=== PATIENT | female | born 1970 | race African-American/Black ===

== ENCOUNTER 2017-11-08 14:22 | Observation (INO) | payer OTHER ==
[~2017-11-08] VITALS: Ht 152.4 cm; Wt 104.3 kg
[2017-11-08 15:12] LABS: BILIRUBIN,URINE NEGATIVE (NEGATIVE); CLARITY,URINE SL CLOUDY (CLEAR); COLOR,URINE YELLOW (YELLOW); KETONES,URINE TRACE (NEGATIVE); LEUKOCYTE ESTERASE ,URINE NEGATIVE (NEGATIVE); NITRITE,URINE NEGATIVE (NEGATIVE); PROTEIN,URINE DIPSTICK NEGATIVE (NEGATIVE); URINE UROBILINOGEN 0.2 mg/dL (0.2 - 1)
[2017-11-08 15:34] LABS: RBC,URINE 0-5 /HPF (0-5); WBC,URINE (MAN) 0-5 /HPF (0-5)
[2017-11-08 15:34] LABS: ANION GAP 14.5 mmol/L (8-16); BLOOD UREA NITROGEN 14 mg/dL (7-26); BUN/CREATININE RATIO 16 (6-25); CALCIUM 9.3 mg/dL (8.4-10.2); CARBON DIOXIDE 25 mmol/L (22-29); CHLORIDE 107 mmol/L (98-107); CREATININE, SERUM 0.85 mg/dL (0.57-1.11); EST GLOMERULAR FILTRATION RATE > 60 ML/MIN (60-); GLUCOSE 111 mg/dL (74-118); OSMOLALITY,SERUM 286 mOsm/kg (278-305); POTASSIUM 3.5 mmol/L (3.5-5.1); SODIUM 143 mmol/L (136-145)
[2017-11-08 15:35] LABS: BACTERIA,URINE RARE /HPF; EPITHELIAL CELLS,URINE FEW /LPF
[2017-11-08 15:37] LABS: MUCUS,URINE MANY (RARE)
[2017-11-08 17:05] LABS: CHOL/HDL RATIO 2.9 (3.0-3.6)
[2017-11-08 17:25] LABS: THYROID STIMULATING HORMONE 0.663 uIU/mL (0.350-4.940)
[2017-11-08 19:33] VITALS: BP 140/92
[2017-11-08] MEDS ORDERED: KETOROLAC TROMETHAMINE 10 MG TAB PO PRN (20:00)
[2017-11-08] MEDS ORDERED: CLONAZEPAM 0.5 MG TAB PO PRN (20:00)
[2017-11-08 21:00] VITALS: BP 148/98
[2017-11-09 08:00] VITALS: BP 119/81
[2017-11-09 08:26] LABS: BASOPHILS # (AUTO) 0.1 (0.0-0.1); EOSINOPHILS # (AUTO) 0.2 (0.0-0.4); EOSINOPHILS % 2.1 % (0.0-6.0); HEMATOCRIT 38.6 % (34.2-44.1); HEMOGLOBIN 12.3 g/dL (12.0-16.0); LYMPHOCYTES # (AUTO) 2.4 (1.0-3.2); LYMPHOCYTES % 32.4 % (18.0-39.1); MEAN CORPUSCULAR HEMOGLOBIN 27.3 pg (28-32); MEAN CORPUSCULAR HGB CONC 31.9 g/dL (31-35); MEAN CORPUSCULAR VOLUME 85.6 fL (81-99); MONOCYTES # (AUTO) 0.7 (0.2-0.8); MONOCYTES % 9.4 % (4.4-11.3); NEUTROPHILS % 54.7 % (38.7-80.0); PLATELET COUNT 282 x10e3/uL (140-360); RED BLOOD COUNT 4.51 x10e6/uL (3.6-5.1); RED CELL DISTRIBUTION WIDTH 14.1 % (11.7-14.4)
[2017-11-09] MEDS: LABETALOL HCL 200 MG TAB PO SCH ×2 (09:00→17:00)
[2017-11-09] MEDS ORDERED: NIFEDIPINE 10 MG CAP PO SCH (09:00)
[2017-11-09] MEDS: NIFEDIPINE CR 30 MG TAB PO SCH (09:00)
[2017-11-09 12:00] VITALS: BP 145/75
--- NOTE | 2017-11-09 13:08 | Consultation ---
DATE OF CONSULTATION: November 09, 2017 REASON FOR CONSULTATION: Polyuria. HPI: Ms. Pitts is a 47-year-old woman with a history of hypertension, who follows with Dr. Pena in clinic. She presented to [facility] yesterday with complaint of polyuria. She states that she works 12-hour shifts, and during the day she does not make any urine at all. Then after coming back to home and lying down, she urinates frequently. Over the past few days, she has been urinating twice every few hours constantly. She has also started to have occasional cramps in her legs in the setting of this. She denies increased thirst, dry mouth, changes in appetite or uncontrolled diabetes. Nobody in her family has diabetes insipidus, and she has never been told that she has diabetes insipidus. She has not recently had any surgery performed. She does not endorse decreased stream or difficulty urinating. REVIEW OF SYSTEMS: She denies fevers, chills, cough, nausea, vomiting, diarrhea, chest pain, palpitations, abdominal pain, pain or burning with urination, numbness or tingling in upper and lower extremities, changes in weight, changes in appetite, changes in thirst. PAST MEDICAL HISTORY: Hypertension. PAST SURGICAL HISTORY: None. FAMILY HISTORY: No history of diabetes insipidus. Mother of end-stage renal disease. SOCIAL HISTORY: No alcohol, tobacco or illicit drug use. PHYSICAL EXAMINATION GENERAL: She is lying comfortably in bed, in no acute distress. VITAL SIGNS: Temperature 97, heart rate 83, respiratory rate 18, blood pressure 99156. O2 sat is 97% on room air. HEENT: NC, AT, EOMI. NECK: Supple. JVP not appreciated. LUNGS: Clear to auscultation bilaterally. No wheezing or rales. HEART: Regular rate and rhythm. S1 and S2 normal. ABDOMEN: Soft, nontender, nondistended. Positive bowel sounds. EXTREMITIES: Intact pulses. No edema. SKIN: No rashes or lesions. NEURO: Cranial nerves II through XII are grossly intact. No focal deficits. MUSCULOSKELETAL: Normal inspection. Normal gait. LABS: Reviewed on electronic medical record. Significant for normal sodium of 143, potassium 3.5, creatinine 0.8, specific gravity 1.03 with pending urine osmolality. IMAGING: Reviewed on electronic medical record. ASSESSMENT AND PLAN 1. Suspected polyuria. I am not convinced that she has polyuria. It is reasonable she that urinates more during the night, especially after not urinating all day, due to increased venous return from venous contraction while lying down. I do not think she needs a Arita just yet. I requested she keep an accurate measurement of her urine output. For her to qualify as being polyuric, she would need to make more than 3 L a day. For now, since this morning, she has only made 300, and it is currently 11 a.m. I will repeat a UA as the prior one shows a high specific gravity, which would be against diabetes insipidus and, in general, having a normal sodium with a higher urine osmolality and serum osmolality would go against diabetes insipidus. Will repeat the UA. Check on the urine osmolality. She does not need medications for now to treat the polyuria. Will hold the ketorolac. 2. Hypertension. Continue nifedipine and labetalol. Thank you, Dr. Pena, for allowing me to participate in the care of Ms. Pitts. I will continue to follow closely. Job#: [id number]
--- NOTE | 2017-11-09 13:57 | History and Physical ---
PRIMARY CARE PHYSICIAN: Dr. Raj Pena CHIEF COMPLAINT: Excess urination. HISTORY OF PRESENT ILLNESS: This is a 47-year-old woman with a history of prediabetes, now developing excess urination for the past 2 to 3 weeks, urinating about 4 to 6 times at night large amounts of urine, sometimes waking up in the morning with need for multiple urination large volume. She denies any dysuria. Denies any fever, chills or sweats. Denies any head trauma. Denies any recent injury. Does not take lithium. PAST MEDICAL HISTORY: Prediabetes, right shoulder rotator cuff tear, awaiting surgery, urinary urgency, right shoulder pain, morbid obesity, generalized anxiety disorder, hypertension. PAST SURGICAL HISTORY: Hysterectomy, x2, cyst removal, breast reduction. ALLERGIES: PER ELECTRONIC MEDICAL RECORD. FAMILY HISTORY: Her mother had congestive heart failure, end-stage renal disease, and hypertension. Father is alive and healthy. SOCIAL HISTORY: The patient is single. She has 2 children. Occasional alcohol. No cigarettes or illicits. 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 MEDICATIONS: Per electronic medical record. REVIEW OF SYSTEMS: Denies any dizziness, chest pain, shortness of breath, fever, chills, sweats, nausea, vomiting, diarrhea, leg pain, headache, blurred vision. PHYSICAL EXAMINATION VITAL SIGNS: Have been reviewed. GENERAL APPEARANCE: No acute distress, resting in bed. HEENT: Anicteric. Pupils respond to light. No oral lesions. CARDIOVASCULAR: Normal S1 and S2. LUNGS: Moderate breath sounds. ABDOMEN: Soft, nontender, nondistended. EXTREMITIES: No edema or calf tenderness. NEUROLOGIC: Alert and oriented x3. Moving all extremities. SKIN: Dry. PSYCHIATRIC: Normal affect. LABS: Reviewed. MEDICATIONS: Reviewed. ASSESSMENT: A 47-year-old woman with 1. Polyuria. 2. Prediabetes. 3. Morbid obesity with body mass index 44.9. 4. Hypertension. 5. Anxiety disorder. 6. High-grade near full thickness of the right rotator cuff. PLAN 1. Hold clonazepam. 2. Obtain urinalysis. 3. Obtain 24-hour urine collection with volume measurement. 4. Obtain urine osmol, serum osmol. 5. Obtain blood antidiuretic hormone level. 6. Obtain hemoglobin A1c. 7. Patient's symptoms could be due to urinary retention caused by clonazepam and subsequent excess urine output when the drug wears off. Half-life of the drug is 20 to 50 hours. 8. Will use SCD. 9. Nephrology consultation. 10. Disposition. Follow up nephrology recommendation. Follow up lab results. Job#: [id number] LPA
[2017-11-09 16:00] VITALS: BP 126/74
[2017-11-09 20:44] VITALS: BP 112/85
[2017-11-09 21:00] VITALS: BP 112/85
[2017-11-10 00:43] VITALS: BP 98/70
[2017-11-10 04:30] VITALS: BP 102/70
[2017-11-10 06:31] LABS: BASOPHILS # (AUTO) 0.1 (0.0-0.1); EOSINOPHILS # (AUTO) 0.2 (0.0-0.4); EOSINOPHILS % 2.2 % (0.0-6.0); HEMOGLOBIN 11.5 g/dL (12.0-16.0); LYMPHOCYTES # (AUTO) 2.3 (1.0-3.2); LYMPHOCYTES % 33.7 % (18.0-39.1); MEAN CORPUSCULAR HEMOGLOBIN 27.2 pg (28-32); MEAN CORPUSCULAR HGB CONC 31.1 g/dL (31-35); MEAN CORPUSCULAR VOLUME 87.5 fL (81-99); MONOCYTES # (AUTO) 0.8 (0.2-0.8); MONOCYTES % 11.4 % (4.4-11.3); NEUTROPHILS # (AUTO) 3.5 (2.1-6.9); NEUTROPHILS % 51.3 % (38.7-80.0); PLATELET COUNT 268 x10e3/uL (140-360); RED BLOOD COUNT 4.23 x10e6/uL (3.6-5.1); RED CELL DISTRIBUTION WIDTH 14.1 % (11.7-14.4)
[2017-11-10 06:40] LABS: CLARITY,URINE CLEAR (CLEAR); COLOR,URINE YELLOW (YELLOW); LEUKOCYTE ESTERASE ,URINE NEGATIVE (NEGATIVE); NITRITE,URINE NEGATIVE (NEGATIVE); PROTEIN,URINE DIPSTICK NEGATIVE (NEGATIVE)
[2017-11-10 06:41] LABS: BILIRUBIN,URINE NEGATIVE (NEGATIVE); KETONES,URINE NEGATIVE (NEGATIVE); URINE UROBILINOGEN 0.2 mg/dL (0.2 - 1)
[2017-11-10 06:48] LABS: ANION GAP 12.1 mmol/L (8-16); BLOOD UREA NITROGEN 11 mg/dL (7-26); BUN/CREATININE RATIO 16 (6-25); CALCIUM 8.8 mg/dL (8.4-10.2); CARBON DIOXIDE 24 mmol/L (22-29); CHLORIDE 109 mmol/L (98-107); CREATININE, SERUM 0.67 mg/dL (0.57-1.11); EST GLOMERULAR FILTRATION RATE > 60 ML/MIN (60-); GLUCOSE 93 mg/dL (74-118); MAGNESIUM 2.4 MG/DL (1.3-2.1); POTASSIUM 4.1 mmol/L (3.5-5.1); SODIUM 141 mmol/L (136-145)
[2017-11-10 06:54] LABS: EPITHELIAL CELLS,URINE FEW /LPF
[2017-11-10 06:55] LABS: WBC,URINE (MAN) 0-5 /HPF (0-5)
[2017-11-10 07:02] LABS: PHOSPHORUS 3.3 MG/DL (2.3-4.7)
[2017-11-10 08:41] VITALS: BP 105/69
[2017-11-10] MEDS: NIFEDIPINE CR 30 MG TAB PO SCH (09:00)
[2017-11-10] MEDS: LABETALOL HCL 200 MG TAB PO SCH (09:11)
--- NOTE | 2017-11-10 09:26 | Progress Note ---
DATE: November 10, 2017 REASON FOR CONSULTATION: Urinary frequency. SUBJECTIVE: No acute events overnight. Made 1.7 L of urine. Each time only urinates about 100 mL, but goes quite frequently. OBJECTIVE GENERAL: Laying comfortably in bed. No acute distress. VITAL SIGNS: Temperature 96.7, heart rate 85, respiratory rate 18, blood pressure 105/69, and O2 sat is 100%. LUNGS: Clear to auscultation bilaterally. No wheezing or rales. HEART: Regular rate and rhythm. S1 and S2 normal. ABDOMEN: Soft, nontender and nondistended. EXTREMITIES: No edema. Intact pulses. SKIN: No rashes or lesions. LABS: Reviewed in the electronic medical record. Normal lab profile with slightly elevated magnesium of 2.4. ASSESSMENT AND PLAN: Urinary frequency. No signs of urinary tract infection. Suspect she has mild urge incontinence. We will start her on oxybutynin and have her see urology for this as an outpatient. Thank you, Dr. Pena, for allowing me to participate in the care of Ms. Pitts. From a renal standpoint, she is okay to be discharged today. Job#: [id number] [place]
[2017-11-10 10:27] VITALS: BP 110/69
[2017-11-10 12:48] VITALS: BP 100/74
[2017-11-10 13:34] LABS: OSMOLALITY,SERUM OSMOMETER 287 mOsmol/kg (275-295)
[2017-11-10] MEDS ORDERED: OXYBUTYNIN CHLOR5 MG PO (14:16)
--- NOTE | 2017-11-14 16:25 | Discharge Summary ---
PRINCIPAL DIAGNOSES 1. Polyuria. 2. Urinary urgency. 3. Prediabetes. 4. Morbid obesity with body mass index of 44.9. 5. Hypertension. 6. Anxiety disorder. SECONDARY DIAGNOSIS: High-grade near full thickness of the right rotator cuff. CHIEF COMPLAINT: Excessive urination. HISTORY OF PRESENT ILLNESS: This is a 47-year-old woman with excessive urination. Please refer to the H and P for further details. HOSPITAL COURSE: Patient has been having excessive urination but she has had reduced urine output during the day and increased at night. Symptoms seem to be related to urgency and needs to follow up with [facility]. A 24-hour urine collection was obtained which was normal. Nephrology assisted in management. ADH was ordered, antidiuretic hormone. Results are still pending. Patient is currently appropriate for discharge followup. DISCHARGE MEDICATIONS: Refer to electronic medical record. FOLLOWUP: Follow up with primary care doctor in 1 week and gynecology in 1 week. LAZARA JOY MD Job#: [id number] DG
== END 2017-11-10 15:15 | disposition home or self-care (01) ==
LOC: ER 14:22 → ERHOLD 15:41 → MED/SURG2 17:21
PROVIDERS: ADMIT Internal Medicine; ATTEND Internal Medicine
DX: R35.0 Frequency of micturition (principal); R73.03 Prediabetes; E66.01 Morbid (severe) obesity due to excess calories; Z68.41 Body mass index [BMI] 40.0-44.9, adult; I10 Essential (primary) hypertension; F41.9 Anxiety disorder, unspecified; M75.101 Unspecified rotator cuff tear or rupture of right shoulder, not specified as traumatic; R39.15 Urgency of urination
CPT/HCPCS: 36415; 80048; 80061; 81001; 82947; 83036; 83735; 83930; 83935; 84100; 84295; 84443; 84520; 84588; 85025; 99284; G0378

== ENCOUNTER 2018-03-05 21:13 | Observation (INO) | payer OTHER ==
[~2018-03-05] VITALS: Ht 152.4 cm; Wt 98.9 kg
[~2018-03-05 21:13] MED LIST: OXYBUTYNIN CHLOR5 MG PO
--- OUTSIDE RECORDS SUMMARY | 2018-03-05 21:16 | XMS REPORT | Clinical Summary ---
Author Author [facility] Address Unknown Phone Unavailable Care Team Providers Care Shotgun Shell Assembly Machine Adjuster Name Role Phone Raj Pena MD PCP Allergies No Known Allergies Current Medications Prescription Sig. Disp. Refills Start End Date Status Date clonAZEPAM (KlonoPIN) 0.5 08/25/19 Active MG tablet 18 cyclobenzaprine 08/24/19 Active (FLEXERIL) 5 mg tablet 18 gabapentin (NEURONTIN) 09/07/19 Active 100 mg capsule 18 labetalol (NORMODYNE) 100 07/26/19 Active MG tablet 18 Hospital, Clinic, or Ordered Dose Route Frequency Start End Date Status Other Facility Date Administered Medication keTOROlac (TORadol) 30 mg IM once 10/04/19 10/04/19 Ended injection 30 18 18 mgIndications: Right shoulder pain, unspecified chronicity methylPREDNISolone 40 mg IM once 10/04/19 10/04/19 Ended acetate (DEPO-MEDROL) 18 18 injection 40 mgIndications: Right shoulder pain, unspecified chronicity Active Problems Problem Noted Date Right shoulder pain 10/09/2017 Complete tear of right rotator cuff 10/09/2017 Encounters Date Type Specialty Care Team Description 10/11/2017 Hospital Radiology Fernandez Thornton Encounter MD Geovanny 10/11/2017 Procedure Pass Radiology 10/11/2017 Ancillary Radiology Fernandez Thornton Orders MD Geovanny 10/03/2017 Office Visit Ortho Sports Medicine Fernandez Thornton Right shoulder painJr. MD unspecified chronicity (Primary Dx); Complete tear of right rotator cuff after 03/04/2017 Family History Medical History Relation Name Comments Hypertension Mother Relation Name Status Comments Mother Social History Tobacco Use Types Packs/Day Years Used Date Never Smoker Smokeless Tobacco: Never Used Alcohol Use Drinks/Week oz/Week Comments Yes Social Sex Assigned at Date Recorded Not on file Last Filed Vital Signs Vital Sign Reading Time Taken Blood Pressure - - Pulse - - Temperature - - Respiratory Rate - - Oxygen Saturation - - Inhaled Oxygen - - Concentration Weight 95.3 kg (210 lb) 10/03/2017 3:15 PM CDT Height 152.4 cm (5') 10/03/2017 3:15 PM CDT Body Mass Index 41.01 10/03/2017 3:15 PM CDT Plan of Treatment Health Maintenance Due Date Last Done Comments CERVICAL CANCER SCREENING 1990 INFLUENZA VACCINE 12/13/2017 Procedures Procedure Name Priority Date/Time Associated Diagnosis Comments MN INJECT TRIGGER POINT, Routine 10/03/2017 Right shoulder pain, Results for this 1 OR 2 3:00 PM CDT unspecified chronicity procedure are in the results section. MRI UPPER EXTREMITY Routine 09/12/2017 Results for this EXTERNAL STUDY 3:03 PM CDT procedure are in the results section. after 03/04/2017 Results * INJECT TRIGGER POINT, 1 OR 2 (10/03/2017 3:00 PM) Narrative Performed At Fernandez Thornton Jr., MD 10/09/20177:14 PM 1 or 2 Trigger Point Injection Date/Time: 10/09/2017 7:12 PM Performed by: FERNANDEZ THORNTON JR. Authorized by: FERNANDEZ THORNTON JR. Consent: Consent obtained:Verbal Consent given by:Patient Alternatives discussed:No treatment Indications: Indications:Pain relief Location: Therapeutic Trigger Point Injection:Single/multiple trigger point(s): 1-2 muscle groups Location: shoulder Shoulder injected:R periscapular Right side: Right Periscapular Medications administered: 40 mg methylPREDNISolone acetate 40 mg/mL; 30 mg keTOROlac 60 mg/2 mL Pre-procedure details: Neurovascular status: intact Skin preparation:2% chlorhexidine Procedure details: Topical anesthetic:Benzocaine gel Needle gauge:22 G Post-procedure details: Patient tolerance of procedure:Tolerated well, no immediate complications * MRI Upper Extremity External Study (09/12/2017 3:03 PM) Narrative Performed At This exam was not acquired at a [facility] facility and has not been [facility] interpreted by a [facility] Provider.The exam was imported into our imaging system for comparisons purposes. Performing Organization Address City/State/Zipcode Phone Number [facility] [address] [place] [address] after 03/04/2017 Insurance Payer Benefit Subscriber ID Type Phone Address Plan / Group [facility] UMR xxxxxxxxx PPO [facility] [id number] [place] [id number]
[2018-03-05] MEDS ORDERED: ASPIRIN 81 MG CHEW TAB PO ONE (21:45)
[2018-03-05 21:51] LABS: BASOPHILS # (AUTO) 0.1 (0.0-0.1); BASOPHILS % 1.2 % (0.0-1.0); EOSINOPHILS # (AUTO) 0.2 (0.0-0.4); EOSINOPHILS % 2.4 % (0.0-6.0); HEMATOCRIT 42.2 % (34.2-44.1); HEMOGLOBIN 13.3 g/dL (12.0-16.0); LYMPHOCYTES # (AUTO) 3.1 (1.0-3.2); LYMPHOCYTES % 36.5 % (18.0-39.1); MEAN CORPUSCULAR HEMOGLOBIN 26.8 pg (28-32); MEAN CORPUSCULAR HGB CONC 31.5 g/dL (31-35); MEAN CORPUSCULAR VOLUME 84.9 fL (81-99); MONOCYTES # (AUTO) 0.9 (0.2-0.8); MONOCYTES % 10.2 % (4.4-11.3); NEUTROPHILS # (AUTO) 4.2 (2.1-6.9); NEUTROPHILS % 49.3 % (38.7-80.0); PLATELET COUNT 332 x10e3/uL (140-360); RED BLOOD COUNT 4.97 x10e6/uL (3.6-5.1); RED CELL DISTRIBUTION WIDTH 13.7 % (11.7-14.4)
[2018-03-05 22:02] LABS: INR 0.9
[2018-03-05 22:12] LABS: BILIRUBIN,URINE NEGATIVE (NEGATIVE); CLARITY,URINE CLEAR (CLEAR); COLOR,URINE YELLOW (YELLOW); KETONES,URINE NEGATIVE (NEGATIVE); LEUKOCYTE ESTERASE ,URINE NEGATIVE (NEGATIVE); NITRITE,URINE NEGATIVE (NEGATIVE); PROTEIN,URINE DIPSTICK NEGATIVE (NEGATIVE); URINE UROBILINOGEN 0.2 mg/dL (0.2 - 1)
[2018-03-05 22:13] LABS: ALANINE AMINOTRANSFERASE 17 IU/L (0-55); ALBUMIN 3.6 g/dL (3.5-5.0); ALBUMIN/GLOBULIN RATIO 0.9 (0.8-2.0); ALKALINE PHOSPHATASE 90 IU/L (40-150); ANION GAP 16.7 mmol/L (8-16); BLOOD UREA NITROGEN 14 mg/dL (7-26); BUN/CREATININE RATIO 17 (6-25); CALCIUM 9.5 mg/dL (8.4-10.2); CARBON DIOXIDE 22 mmol/L (22-29); CHLORIDE 107 mmol/L (98-107); CREATINE KINASE 238 IU/L (29-168); CREATININE, SERUM 0.82 mg/dL (0.57-1.11); EST GLOMERULAR FILTRATION RATE > 60 ML/MIN (60-); GLUCOSE 92 mg/dL (74-118); POTASSIUM 3.7 mmol/L (3.5-5.1); SODIUM 142 mmol/L (136-145)
[2018-03-05 22:18] LABS: BACTERIA,URINE RARE /HPF; EPITHELIAL CELLS,URINE RARE /LPF; RBC,URINE 0-5 /HPF (0-5); WBC,URINE (MAN) 0-5 /HPF (0-5)
--- NOTE | 2018-03-05 22:34 | Diagnostic Imaging Report ---
CHEST SINGLE (PORTABLE), 03/05/2018 9:37 PM Technique: CHEST SINGLE (PORTABLE) Comparison: None available. Clinical history: Chest pain Findings: Unremarkable portable appearance of the heart, mediastinum, lungs and pleural spaces. Impression: 1. Lines/Tubes: None 2. No acute abnormality. Signed by: Dr Katiuska Sharma MD on 03/05/2018 10:31 PM
[2018-03-06] VITALS (8 sets, daily range): BP systolic 121–166; BP diastolic 73–105
[2018-03-06] MEDS ORDERED: MORPHINE SULFATE 2 MG/ML SYR IV PRN (00:15)
[2018-03-06] MEDS ORDERED: METOPROLOL TARTRATE 25 MG TAB PO SCH ×2 (00:15→08:00)
[2018-03-06] MEDS ORDERED: SODIUM CHLORIDE FLUSH 10 ML SYR INJ PRN (00:15)
[2018-03-06] MEDS ORDERED: ASPIRIN 81 MG CHEW TAB PO ONE (00:15)
--- OUTSIDE RECORDS SUMMARY | 2018-03-06 00:24 | XMS REPORT ---
Author [facility] Address Unknown Phone Unavailable Care Team Providers Care Sausage Cooker Name Role Phone Silver PRIETO Unavailable Unavailable Problems This patient has no known problems. Allergies, Adverse Reactions, Alerts This patient has no known allergies or adverse reactions. Medications This patient has no known medications. Results Test Description Test Time Test Comments Text Results Atomic Results Result Comments CHEST SINGLE (PORTABLE) 2018-03-05 22:29:00 [facility] [address] [address] Patient Name: CLAYTON WATERMAN MR #: [id number] : 1970 Age/Sex: 47/F Req #: [id number] Adm Physician: Ordered by: SILVANA PRIETO MD Report #: [id number] Location: ER Room/Bed: Procedure: [id number] DX/CHEST SINGLE (PORTABLE) Exam Date: 03/05/18 Exam Time: 2210 REPORT STATUS: Signed CHEST SINGLE (PORTABLE), 03/05/2018 9:37 PM Techni que: CHEST SINGLE (PORTABLE) Comparison: None available. Clinical history: Chest pain Findings: Unremarkable portable appearance of the heart, mediastinum, lungs and pleural spaces. Impression: 1. Lines/Tubes: None 2. No acute abnormality. Signed by: Dr Magdalene Sharma MD on 03/05/2018 10:31 PM Dictated By: MAGDALENE SHARMA MD 30 Transcribed By: DAVID on 03/05/182230 COPY TO: SILVANA PRIETO MD
--- OUTSIDE RECORDS SUMMARY | 2018-03-06 00:24 | XMS REPORT | Clinical Summary ---
Author Author [facility] Address Unknown Phone Unavailable Care Team Providers Care Testing Machine Operator Name Role Phone Raj Pena MD PCP [...] Complete tear of right rotator cuff after 03/05/2017 Family History Medical History Relation Name Comments [...] Procedure Name Priority Date/Time Associated Diagnosis Comments GA INJECT TRIGGER POINT, Routine 10/03/2017 Right shoulder pain, Results for this 1 OR 2 3:00 PM CDT unspecified chronicity procedure are in the results section. MRI UPPER EXTREMITY Routine 09/12/2017 Results for this EXTERNAL STUDY 3:03 PM CDT procedure are in the results section. after 03/05/2017 Results * INJECT TRIGGER POINT, 1 OR [...] This exam was not acquired at a [facility] facility and has not been [facility] interpreted by a [facility] Provider.The exam was imported into our imaging system for comparisons purposes. Performing Organization Address City/State/Zipcode Phone Number [facility] [address] [place] [address] after 03/05/2017 Insurance Payer Benefit Subscriber ID Type Phone Address Plan / Group [facility] UMR xxxxxxxxx PPO [facility] [id number] [place] [id number]
--- NOTE | 2018-03-06 06:25 | Diagnostic Imaging Report ---
CHEST SINGLE (PORTABLE), 03/06/2018 12:06 AM Technique: CHEST SINGLE (PORTABLE) Comparison: Previous day. Clinical history: Chest pain Findings: Unremarkable portable appearance of the heart, mediastinum, lungs and pleural spaces. Impression: 1. Lines/Tubes: None 2. No acute abnormality. Signed by: Dr Katiuska Sharma MD on 03/06/2018 6:21 AM
[2018-03-06] MEDS ORDERED: SODIUM CHLORIDE 0.9% 50ML 50 ML ONE (07:05)
[2018-03-06] MEDS ORDERED: IOPAMIDOL 370 MG/ML 200 ML INFUS..BTL INJ ONE (07:06)
--- NOTE | 2018-03-06 07:12 | History and Physical ---
PRIMARY CARE PHYSICIAN: Dr. Raj Pena CHIEF COMPLAINT: Shortness of breath and chest discomfort. HISTORY OF PRESENT ILLNESS: This is a 47-year-old woman, who has had ongoing dyspnea on exertion for several months, which is now worsening. She states that she is short of breath with even walking to the bathroom. Shortness of breath is worse when lying down. She denies any coughing. She has chest tightness, but no particular chest pain. She has sensational chest palpitations, but upon checking her pulse, it is in the normal range. She came to the hospital for further evaluation and management due to ongoing symptoms. She has never had a stress test and electrocardiogram. PAST MEDICAL HISTORY: Polyuria, urinary urgency, prediabetes, morbid obesity, hypertension, anxiety disorder, high-grade near-full thickness tear of the right rotator cuff, generalized anxiety disorder. PAST SURGICAL HISTORY: Hysterectomy, x2, cyst removal, breast reduction. ALLERGIES: PER ELECTRONIC MEDICAL RECORDS. FAMILY HISTORY: Her mother had congestive heart failure, end-stage renal disease, and hypertension. Father is alive and healthy. SOCIAL: Patient is single. She has 2 children. Occasional alcohol. No cigarettes or illicits. 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 MEDICATIONS: Per electronic medical records. REVIEW OF SYSTEMS: Denies any dizziness, fever, chills, nausea vomiting, diarrhea, headache, back pain, leg pain, vision changes. PHYSICAL EXAMINATION VITAL SIGNS: Reviewed. GENERAL: A tired-appearing woman resting in bed. HEENT: Anicteric. CARDIOVASCULAR: Normal S1, S2. LUNGS: She has moderate breath sounds throughout. No wheezing. ABDOMEN: Soft, nontender, nondistended. EXTREMITIES: No edema. SKIN: Dry. PSYCHIATRIC: Normal affect. NEUROLOGICAL: Alert and oriented x3. Moves all extremities. LABS: Reviewed. MEDICATIONS: Reviewed. ASSESSMENT: This is a 47-year-old woman. 1. Atypical chest pain. 2. Dyspnea on exertion. 3. Prediabetes. 4. Hypertension. 5. Morbid obesity. Body mass index is 42.1. 6. Generalized anxiety disorder. 7. Polyuria. PLAN 1. Obtain 2-D echocardiogram. 2. Trend cardiac enzymes. 3. Will plan stress test inpatient versus outpatient. 4. Obtain lipid panel. 5. Hemoglobin A1c. 6. Continue beta-blockers and aspirin. 7. Prophylaxis, use Lovenox and Pepcid. 8. Disposition, calender runner recommendation. We will follow up 2-D echocardiogram and will obtain a CT scan of the chest with contrast to rule out chronic pulmonary embolism. Job#: [id number] CQ
--- NOTE | 2018-03-06 07:34 | Diagnostic Imaging Report ---
PROCEDURE: CT scan of the chest WITH intravenous contrast, using standard protocol. TECHNIQUE: The chest was scanned utilizing a multidetector helical scanner from the lung apex through the level of the adrenal glands after the IV administration of 100 cc of Isovue 370. Coronal and sagittal multiplanar reformations were obtained. COMPARISON: Chest radiograph 03/06/18. INDICATIONS: SOB; FATIGUE; PULMONARY DISEASE? FINDINGS: Lines/tubes: None. Lungs and Airways: The central airways are patent. No evidence of consolidation. Patchy dependent atelectasis in the lingula and middle lobe. Pleura: The pleural spaces are clear. Heart and mediastinum: The thyroid gland is normal. No significant mediastinal, hilar or axillary lymphadenopathy is seen. The heart and pericardium are within normal limits. Soft tissues: Normal. Abdomen: Limited contrast-enhanced views of the upper abdomen show no abnormality within the visualized liver, spleen, pancreas, or kidneys. The adrenal glands are normal. Bones: No acute bony findings. Mild degenerative disc changes of the thoracic spine. IMPRESSION: Unremarkable chest CT. Dictated by: LUCA SAUCEDO M.D. on 03/06/2018 at 7:42 Electronically approved by: LUCA SAUCEDO M.D. on 03/06/2018 at 7:42
[2018-03-06 08:17] LABS: CREATINE KINASE 195 IU/L (29-168)
[2018-03-06] MEDS: FAMOTIDINE 20 MG TAB PO SCH ×2 (08:43→16:15)
[2018-03-06] MEDS ORDERED: ASPIRIN 81 MG ENTERIC COATED PO SCH (09:00)
--- NOTE | 2018-03-06 14:33 | Consultation ---
DATE OF CONSULTATION: March 06, 2018 CARDIOLOGY CONSULTATION REQUESTING PHYSICIAN: Raj Pena MD REASON FOR CONSULTATION: Chest pain. HISTORY OF PRESENT ILLNESS: This is a 47-year-old woman with hypertension and obesity, who presents with complaints of chest pain and shortness of breath. The patient reports she has been having chest tightness and indigestion since Monday associated with shortness of breath. There is no radiation, nausea or diaphoresis. The pain is 4/10 in severity and lasts hours at a time. It occurs intermittently. She has not noted any aggravating or alleviating factors. Of note, she is more short of breath when she lies flat and is dyspneic on exertion with walking to and from the bathroom. She, otherwise, denies any PND or edema. REVIEW OF SYSTEMS: Negative, except as per HPI. PAST MEDICAL HISTORY 1. Hypertension. 2. Obesity. 3. Prediabetes. 4. Anxiety. PAST SURGICAL HISTORY 1. Hysterectomy. 2. section x2. 3. Breast reduction. 4. Ovarian cyst removal. ALLERGIES: NO KNOWN DRUG ALLERGIES. MEDICATIONS: Please see EMR. SOCIAL HISTORY: Denies tobacco or illicit drugs. She does drink alcohol socially. FAMILY HISTORY: Pertinent for mother with atrial fibrillation and grandmother with congestive heart failure. PHYSICAL EXAMINATION VITAL SIGNS: Temperature 96.9 degrees, pulse 81, respiratory rate 17, blood pressure 121/77, oxygen saturation 98% on room air. GENERAL: Obese woman in no acute distress. Awake and alert. HEENT: Normocephalic and atraumatic. Pupils are equal. No scleral icterus. NECK: Supple. No thyromegaly or cervical lymphadenopathy. No carotid bruit. LUNGS: Clear to auscultation bilaterally. No wheezes or crackles. CARDIOVASCULAR: Normal rate, regular rhythm. No murmur. Normal S1 and S2. ABDOMEN: Soft. Nontender. EXTREMITIES: No edema. NEURO: Nonfocal exam. LABS: WBC 8.43, hemoglobin 13.3, hematocrit 42.2, platelets 332. Sodium 142, potassium 3.7, chloride 107, CO2 22, BUN 14, creatinine 0.82. Troponin less than 0.001. BNP 16.4. Cholesterol 187, LDL 106, HDL 62, triglycerides 94. CT CHEST: Unremarkable chest CT. ECHOCARDIOGRAM: Mild concentric LVH. Overall left ventricular systolic function is normal with EF between 55% and 60%. Diastolic filling pattern indicates impaired relaxation. Trivial pericardial effusion is present. EKG: Normal sinus rhythm. Possible anterior infarct, age undetermined. IMPRESSION 1. Chest pain. 2. Dyspnea on exertion. 3. Hypertension. 4. Obesity. 5. Pre-diabetes mellitus. 6. Anxiety. RECOMMENDATIONS: No evidence of myocardial infarction on serial cardiac biomarkers. Echocardiogram demonstrated normal LV function with impaired relaxation. We will proceed with nuclear stress test today. Continue current cardiac medications otherwise. Further recommendations pending test results. Thank you for this consult. We will continue to follow. ANJU REEVES MD Job#: [id number]
[2018-03-06] MEDS ORDERED: REGADENOSON 0.4 MG/5 ML SYR IV ONE (15:38)
[2018-03-06 15:56] LABS: CREATINE KINASE MB 0.7 ng/mL (0-5.0)
[2018-03-06] MEDS ORDERED: ENOXAPARIN SOD INJ 40 MG/0.4 ML SYR SC SCH (17:00)
[2018-03-06] MEDS ORDERED: NIFEDIPINE ER30 M1 (17:43)
[2018-03-06] MEDS ORDERED: LABETALOL HCL100 MG PO (17:43)
[2018-03-06] MEDS ORDERED: NIFEDIPINE CR 30 MG TAB PO ONE (18:30)
--- NOTE | 2018-03-06 19:22 | Cardiology Report ---
DATE OF STUDY: March 06, 2018 PROCEDURE TITLE Rest stress single isotope SPECT imaging with pharmacologic stress and gated SPECT imaging. INDICATIONS: Chest pain. PROCEDURE: Pharmacologic stress testing was performed with regadenoson, per protocol. The heart rate was 74 beats per minute at rest and increased to 111 beats per minute during the regadenoson infusion. The rest blood pressure was 151/91 mmHg and decreased to 138/86 mmHg, which is a normal response. Patient did not develop any significant symptoms. The resting electrocardiogram demonstrated normal sinus rhythm. There were no ST segment changes consistent with myocardial ischemia. Myocardial perfusion imaging was performed at rest following injection of 11 mCi of tetrofosmin. At peak pharmacologic effect the patient was injected with 30 mCi of tetrofosmin. Gated post rest tomographic imaging was performed. FINDINGS: The overall quality of study is fair. Left ventricular cavity is noted to be normal size on the rest and stress studies. SPECT images demonstrate homogenous tracer distribution throughout the myocardium. Gated SPECT imaging reveals normal myocardial thickening and wall motion. Left ventricular ejection fraction was calculated to be greater than 70%. IMPRESSION: Myocardial perfusion imaging is normal. Overall left ventricular systolic function was normal without regional wall motion abnormalities. Job#: [id number] GH ELAINA
[2018-03-06] MEDS ORDERED: NIFEDIPINE CR 30 MG TAB PO SCH (19:30)
[2018-03-07] MEDS ORDERED: LABETALOL HCL 100 MG TAB PO SCH (09:00)
== END 2018-03-06 22:32 | disposition home or self-care (01) ==
LOC: ER 21:13 → ERHOLD 03-06 00:20 → IMCU 03-06 02:26
PROVIDERS: ADMIT Internal Medicine; ATTEND Internal Medicine
DX: R07.89 Other chest pain (principal); R06.00 Dyspnea, unspecified; R73.03 Prediabetes; E66.01 Morbid (severe) obesity due to excess calories; Z68.41 Body mass index [BMI] 40.0-44.9, adult; F41.1 Generalized anxiety disorder; R35.8 Other polyuria; Z82.49 Family history of ischemic heart disease and other diseases of the circulatory system; Z84.1 Family history of disorders of kidney and ureter; I10 Essential (primary) hypertension
CPT/HCPCS: 36415 ×2; 71045 ×2; 71260; 78452; 80053; 80061; 81001; 82550 ×2; 82553 ×2; 83036; 83880; 84484 ×2; 85025; 85379; 85610; 85730; 93005; 93017; 93306; 99284; A9502; G0378; Q9967

== ENCOUNTER 2018-08-12 09:02 | Inpatient (IN) | payer BC, OTHER ==
[~2018-08-12] VITALS: Ht 152.4 cm; Wt 105.3 kg
[~2018-08-12 09:02] MED LIST changes: +LABETALOL HCL100 MG PO; +NIFEDIPINE ER30 M1
--- OUTSIDE RECORDS SUMMARY | 2018-08-12 09:05 | XMS REPORT | Clinical Summary ---
Author Author [facility] Organization [facility] Address Unknown Phone Unavailable Care Team Providers Care Hub Bander Name Role Phone Raj Pena MD PCP Allergies No Known Allergies Medications End Date Status Medication Sig Dispensed Refills Start Date Active clonAZEPAM (KlonoPIN) 0.5 0 MG tablet 8 Active cyclobenzaprine 0 (FLEXERIL) 5 mg tablet 8 Active gabapentin (NEURONTIN) 0 100 mg capsule 8 Active labetalol (NORMODYNE) 100 0 MG tablet 8 Status Hospital, Clinic, or Ordered Dose Route Frequency Start End Date Other Facility Date Administered Medication Ended keTOROlac (TORadol) 30 mg IM once 10/04/19 injection 30 18 8 mgIndications: Right shoulder pain, unspecified chronicity Ended methylPREDNISolone 40 mg IM once 10/04/19 acetate (DEPO-MEDROL) 18 8 injection 40 mgIndications: Right shoulder pain, unspecified chronicity Active Problems Problem Noted Date Right shoulder pain 10/09/2017 Complete tear of right rotator cuff 10/09/2017 Encounters Care Team Description Date Type Specialty Fernandez Thornton Jr., MD 10/11/2017 Hospital Radiology Encounter Fernandez Thornton Jr., MD Right shoulder pain, unspecified chronicity (Primary Dx); Complete tear of right rotator cuff 10/03/2017 Office Visit Ortho Sports Medicine after 08/11/2017 Family History Medical History Relation Name Comments Hypertension Mother Relation Name Status Comments Mother Social History Date Tobacco Use Types Packs/Day Years Used Never Smoker Smokeless Tobacco: Never Used Alcohol Use Drinks/Week oz/Week Comments Yes Social Sex Assigned at Date Recorded Not on file Industry Job Start Date Occupation Not on file Not on file Not on file Travel End Travel History Travel Start No recent travel history available. Last Filed Vital Signs Time Taken Vital Sign Reading - Blood Pressure - - Pulse - - Temperature - - Respiratory Rate - - Oxygen Saturation - - Inhaled Oxygen - Concentration 10/03/2017 3:15 PM CDT Weight 95.3 kg (210 lb) 10/03/2017 3:15 PM CDT Height 152.4 cm (5') 10/03/2017 3:15 PM CDT Body Mass Index 41.01 Plan of Treatment Health Maintenance Due Date Last Done Comments CERVICAL CANCER SCREENING 1990 INFLUENZA VACCINE 12/13/2017 Procedures Comments Procedure Name Priority Date/Time Associated Diagnosis TN INJECT TRIGGER POINT, Routine 10/03/2017 Right shoulder pain, 1 OR 2 3:00 PM CDT unspecified chronicity MRI UPPER EXTREMITY Routine 09/12/2017 EXTERNAL STUDY 3:03 PM CDT after 08/11/2017 Results * INJECT TRIGGER POINT, 1 OR 2 (10/03/2017 3:00 PM CDT) Narrative Performed At Fernandez Thornton Jr., MD [...] MRI Upper Extremity External Study (09/12/2017 3:03 PM CDT) Narrative Performed At This exam was not acquired at a [facility] facility and has not been [facility] interpreted by a [facility] Provider.The exam was imported into our imaging system for comparisons purposes. Performing Organization Address City/State/Zipcode Phone Number [facility] [address] [place] [address] after 08/11/2017 Insurance Payer Benefit Subscriber ID Type Phone Address Plan / Group [facility] UMR xxxxxxxxx PPO [employer] CHO[employer] NTWK Advance Directives Patient has advance care planning documents on file. For more information, meaghan e contact: Ham Torre [address] [place] [address]
[2018-08-12] MEDS ORDERED: SODIUM CHLORIDE 0.9% 1000ML 1,000 ML IV STA (09:40)
--- NOTE | 2018-08-12 10:21 | Diagnostic Imaging Report ---
Examination: Single AP view of the chest. COMPARISON: None. INDICATION: Abdominal pain DISCUSSION: Lines/tubes: None. Lungs: The lungs are well inflated and clear. No pneumonia or pulmonary edema. Pleura: No pleural effusion or pneumothorax. Heart and mediastinum: The heart and the mediastinum are unremarkable. Bones and soft tissues: No acute bony abnormalities. IMPRESSION: 1. No acute cardiopulmonary abnormalities. Signed by: Dr. Jordan Livingston M.D. on 08/12/2018 10:17 AM
--- NOTE | 2018-08-12 10:28 | NUR ---
PER PT SHE DID NOT TAKE HER BP MEDS THIS MORNING
[2018-08-12] MEDS ORDERED: MORPHINE SULFATE INJ 4 MG/ML INJ 1ML IV ONE (10:30)
[2018-08-12] MEDS ORDERED: KETOROLAC TROMETHAMINE 30 MG/ML VIAL IV ONE (10:30)
[2018-08-12] MEDS ORDERED: PANTOPRAZOLE 40 MG 10ML VIAL IV ONE (10:30)
[2018-08-12 10:53] LABS: BASOPHILS % 0.3 % (0.0-1.0); EOSINOPHILS % 0.5 % (0.0-6.0); HEMATOCRIT 40.6 % (34.2-44.1); LYMPHOCYTES # (AUTO) 1.3 (1.0-3.2); LYMPHOCYTES % 22.3 % (18.0-39.1); MEAN CORPUSCULAR VOLUME 84.4 fL (81-99); MONOCYTES # (AUTO) 0.9 (0.2-0.8); MONOCYTES % 15.1 % (4.4-11.3); NEUTROPHILS # (AUTO) 3.6 (2.1-6.9); NEUTROPHILS % 61.3 % (38.7-80.0); PLATELET COUNT 295 x10e3/uL (140-360); RED BLOOD COUNT 4.81 x10e6/uL (3.6-5.1); RED CELL DISTRIBUTION WIDTH 13.8 % (11.7-14.4)
[2018-08-12] MEDS ORDERED: LABETALOL HCL 5 MG/ML 20ML VIAL IV ONE (11:00)
--- NOTE | 2018-08-12 11:06 | NUR ---
PT STATES PAIN HAS IMPROVED NOW 08/22 AND FEELS MORE DULL
[2018-08-12 11:10] LABS: ALANINE AMINOTRANSFERASE 21 IU/L (0-55); ALBUMIN 3.3 g/dL (3.5-5.0); ALBUMIN/GLOBULIN RATIO 0.8 (0.8-2.0); ALKALINE PHOSPHATASE 84 IU/L (40-150); AMYLASE 40 U/L (25-125); ANION GAP 11.6 mmol/L (8-16); BLOOD UREA NITROGEN 9 mg/dL (7-26); BUN/CREATININE RATIO 12 (6-25); CALCIUM 9.4 mg/dL (8.4-10.2); CARBON DIOXIDE 25 mmol/L (22-29); CHLORIDE 107 mmol/L (98-107); CREATINE KINASE 127 IU/L (29-168); CREATININE, SERUM 0.75 mg/dL (0.57-1.11); EST GLOMERULAR FILTRATION RATE > 60 ML/MIN (60-); GLUCOSE 100 mg/dL (74-118); LIPASE 11 U/L (8-78); MAGNESIUM 2.2 MG/DL (1.3-2.1); POTASSIUM 3.6 mmol/L (3.5-5.1); SODIUM 140 mmol/L (136-145)
[2018-08-12 11:19] LABS: CLARITY,URINE HAZY (CLEAR); COLOR,URINE YELLOW (YELLOW); KETONES,URINE NEGATIVE (NEGATIVE); LEUKOCYTE ESTERASE ,URINE NEGATIVE (NEGATIVE); NITRITE,URINE NEGATIVE (NEGATIVE); PROTEIN,URINE DIPSTICK TRACE (NEGATIVE)
[2018-08-12 11:20] LABS: BILIRUBIN,URINE NEGATIVE (NEGATIVE); URINE UROBILINOGEN 1 mg/dL (0.2 - 1)
[2018-08-12 11:21] LABS: INR 1.04; PROTHROMBIN TIME 14.1 seconds (11.9-14.5)
[2018-08-12 11:22] LABS: PARTIAL THROMBOPLASTIN TIME 27.5 seconds (23.8-35.5)
[2018-08-12 11:28] LABS: RBC,URINE 0-5 /HPF (0-5); WBC,URINE (MAN) 0-5 /HPF (0-5)
[2018-08-12 11:29] LABS: BACTERIA,URINE FEW /HPF; EPITHELIAL CELLS,URINE MODERATE /LPF
--- NOTE | 2018-08-12 11:37 | NUR ---
PT STATES HER PAIN WENT FROM 4/10 TO 0
--- NOTE | 2018-08-12 12:21 | Diagnostic Imaging Report ---
EXAMINATION: CT of the abdomen and pelvis with contrast. TECHNIQUE: Helical CT images of the abdomen and pelvis were performed from the lung bases to the lesser trochanters after the intravenous administration of 150 cc of Isovue 300 and the oral administration of none. Coronal and sagittal reformatted images were obtained. COMPARISON: None. CLINICAL HISTORY:Abdominal pain DISCUSSION: ABDOMEN/PELVIS: LOWER THORAX:Unremarkable. HEPATOBILIARY: No focal hepatic lesions. No intra-or extrahepatic biliary ductal dilation. The gallbladder is normal. SPLEEN: No splenomegaly. PANCREAS: No focal masses or ductal dilatation. ADRENALS: No adrenal nodules. KIDNEYS/URETERS: No hydronephrosis, stones, or solid mass lesions. PELVIC ORGANS/BLADDER: The bladder is normal. PERITONEUM/RETROPERITONEUM: Periumbilical hernia with transverse defect 2.6 cm containing a loop of small bowel. No inflammatory change. LYMPH NODES: No intra-abdominal, retroperitoneal, pelvic or inguinal lymphadenopathy. VESSELS: The celiac trunk,superior and inferior mesenteric and bilateral renal arteries are patent The portal, superior mesenteric and splenic veins are patent. GI TRACT: No distention or wall thickening. BONES AND SOFT TISSUE: No bony destructive lesions. No soft tissue abnormalities. IMPRESSION: Periumbilical hernia with transverse defect to 2.6 cm containing a loop of small bowel. No inflammatory change. Signed by: Dr. Jordan Livingston M.D. on 08/12/2018 12:17 PM
--- NOTE | 2018-08-12 13:20 | NUR ---
PT STATES PAIN IS COMING BACK 3/10 STATES PAIN IS DULL
--- OUTSIDE RECORDS SUMMARY | 2018-08-12 13:54 | XMS REPORT | Clinical Summary ---
Author Author [facility] Organization [facility] Address Unknown Phone Unavailable Care Team Providers Care Fireboat Operator Name Role Phone Raj Pena MD [...] Comments Procedure Name Priority Date/Time Associated Diagnosis CT INJECT TRIGGER POINT, Routine 10/03/2017 Right shoulder [...] This exam was not acquired at a [facility] facility and has not been [facility] interpreted by a [facility] Provider.The exam was imported into our imaging system for comparisons purposes. Performing Organization Address City/State/Zipcode Phone Number [facility] [address] [place] [address] after 08/11/2017 Insurance Payer Benefit Subscriber ID Type Phone Address Plan / Group [facility] UMR xxxxxxxxx PPO [employer] CHO[employer] NTWK Advance Directives Patient has advance care planning documents on file. For more information, meaghan e contact: Ham Torre [address] [place] [address]
[2018-08-12] MEDS: MORPHINE SULFATE INJ 4 MG/ML INJ 1ML IV PRN (14:01)
[2018-08-12] MEDS: SODIUM CHLORIDE 0.9% 1000ML 1,000 ML IV SCH ×2 (14:01→22:15)
[2018-08-12] MEDS: ONDANSETRON HCL INJ 2MG/ML 2ML 2 MG/ML VIAL IV PRN ×2 (14:02→20:25)
--- NOTE | 2018-08-12 14:48 | NUR ---
pt states her pain is down to 0 from 3/10 after morphine admin
--- NOTE | 2018-08-12 16:08 | NUR ---
PT STATES SHE HAS QUESTIONS ABOUT THE PROCEDURE AND NEEDS TO SPEAK TO THE MD
--- NOTE | 2018-08-12 16:40 | NUR ---
DR OLIVER CALLED BACK AND SAID HE WOULD COME BY TOMORROW TO ANSWER ANY QUESTIONS THE PT MIGHT HAVE; PT INFORMED OF THIS
[2018-08-12] MEDS: PANTOPRAZOLE 40 MG 10ML VIAL IV SCH (16:46)
--- NOTE | 2018-08-12 17:52 | NUR ---
PRIMARY CARE PHYSICIAN: Dr. Raj Pena CHIEF COMPLAINT: abdominal pain. HISTORY OF PRESENT ILLNESS: This is a 48-year-old woman, p/w abdominal pain, found to have hernia; PAST MEDICAL HISTORY: Polyuria, urinary urgency, prediabetes, morbid obesity, hypertension, anxiety disorder, high-grade near-full thickness tear of the right rotator cuff, generalized anxiety disorder, Atypical chest pain PAST SURGICAL HISTORY: Hysterectomy, x2, cyst removal, breast reduction. ALLERGIES: PER ELECTRONIC MEDICAL RECORDS. FAMILY HISTORY: Her mother had congestive heart failure, end-stage renal disease, and hypertension. Father is alive and healthy. SOCIAL: Patient is single. She has 2 children. Occasional alcohol. No cigarettes or illicits. Works as a nurse at [employer]. MEDICATIONS: Per electronic medical records. REVIEW OF SYSTEMS: Denies any dizziness, fever, chills, nausea vomiting, diarrhea, headache, back pain, leg pain, vision changes. PHYSICAL EXAMINATION VITAL SIGNS: Reviewed. GENERAL: A tired-appearing woman resting in bed. HEENT: Anicteric. CARDIOVASCULAR: Normal S1, S2. LUNGS: She has moderate breath sounds throughout. No wheezing. ABDOMEN: Soft, Tender epigastrium; EXTREMITIES: No edema. SKIN: Dry. PSYCHIATRIC: Normal affect. NEUROLOGICAL: Alert and oriented x3. Moves all extremities. LABS: Reviewed. MEDICATIONS: Reviewed. ASSESSMENT: This is a 47-year-old woman. 1. Abdominal pain 2.Periumbilical hernia 3.Obesity 4.PreDM 5.Urinary incontinence 6.HTN 7.EMILIO PLAN 1. HIDA 2.hba1c/lipids 3.Restart home meds SCD/PEPCID dispo: f/u HIDA; possible surgical mgmt. Raj Pena MD, PhD.
[2018-08-12] MEDS ORDERED: IOPAMIDOL 370 MG/ML 200 ML INFUS..BTL INJ ONE (18:16)
[2018-08-12] MEDS ORDERED: SODIUM CHLORIDE 0.9% 50ML 50 ML ONE (18:16)
[2018-08-12 18:55] LABS: CREATINE KINASE 97 IU/L (29-168)
[2018-08-12 19:14] LABS: THYROID STIMULATING HORMONE 0.314 uIU/mL (0.350-4.940)
--- NOTE | 2018-08-12 19:18 | NUR ---
RECEIVED BEDSIDE REPORT FROM CAT ALANIS DAY SHIFT NURSE.
--- NOTE | 2018-08-12 20:38 | Consultation ---
DATE OF CONSULTATION: 08/12/2018 CHIEF COMPLAINT: Abdominal pain. HISTORY OF PRESENT ILLNESS: The patient is a 48-year-old female with 4-day history of epigastric abdominal pain and one episode of vomiting. She has been having nausea and decreased appetite. No fevers. No diarrhea. PAST MEDICAL HISTORY: Significant for hypertension. PAST SURGICAL HISTORY: Positive for removal of right ovarian cyst. ALLERGIES: SHE HAS NO DRUG ALLERGIES. SOCIAL HABITS: She does not smoke or drink alcohol. REVIEW OF SYSTEMS: No chest pain or shortness of breath. PHYSICAL EXAMINATION: VITAL SIGNS: Stable, afebrile. GENERAL: The patient is awake, alert, in mild discomfort. HEENT: Sclera anicteric. NECK: Supple. LUNGS: Clear. HEART: Regular rate and rhythm. ABDOMEN: Soft. There is a lump in the infraumbilical region in the midline, which is nontender. The lump is reducible. EXTREMITIES: Without cyanosis or edema. LABORATORY DATA: White cell count is 5.9 and hemoglobin of 13. Creatinine 0.7. Lipase 11. CT scan of the abdomen show periumbilical hernia with a loop of small bowel, nonobstructive. ASSESSMENT: Incarcerated nonobstructive incisional hernia, reducible. PLAN: Repair of incarcerated incisional hernia under anesthesia. Attendant risks discussed. Brandt Mcgraw MD DNL/MODL /[id number]
[2018-08-12] MEDS ORDERED: LABETALOL HCL 100 MG TAB PO SCH (21:00)
--- NOTE | 2018-08-12 22:08 | NUR ---
DR. JOY AT BEDSIDE WITH PT.
[2018-08-13 03:03] LABS: CREATINE KINASE MB 0.3 ng/mL (0-5.0)
[2018-08-13 05:36] LABS: BASOPHILS % 0.7 % (0.0-1.0); EOSINOPHILS # (AUTO) 0.1 (0.0-0.4); EOSINOPHILS % 1.8 % (0.0-6.0); HEMATOCRIT 38.5 % (34.2-44.1); LYMPHOCYTES # (AUTO) 2.4 (1.0-3.2); LYMPHOCYTES % 41.2 % (18.0-39.1); MEAN CORPUSCULAR HGB CONC 31.2 g/dL (31-35); MEAN CORPUSCULAR VOLUME 86.7 fL (81-99); MONOCYTES # (AUTO) 0.8 (0.2-0.8); MONOCYTES % 13.5 % (4.4-11.3); NEUTROPHILS # (AUTO) 2.4 (2.1-6.9); NEUTROPHILS % 42.6 % (38.7-80.0); PLATELET COUNT 277 x10e3/uL (140-360); RED BLOOD COUNT 4.44 x10e6/uL (3.6-5.1); RED CELL DISTRIBUTION WIDTH 13.8 % (11.7-14.4)
[2018-08-13 05:55] LABS: ALANINE AMINOTRANSFERASE 18 IU/L (0-55); ALBUMIN 3.1 g/dL (3.5-5.0); ALBUMIN/GLOBULIN RATIO 0.8 (0.8-2.0); ALKALINE PHOSPHATASE 71 IU/L (40-150); ANION GAP 12.5 mmol/L (8-16); BLOOD UREA NITROGEN 5 mg/dL (7-26); BUN/CREATININE RATIO 7 (6-25); CALCIUM 8.8 mg/dL (8.4-10.2); CARBON DIOXIDE 24 mmol/L (22-29); CHLORIDE 108 mmol/L (98-107); CREATININE, SERUM 0.73 mg/dL (0.57-1.11); EST GLOMERULAR FILTRATION RATE > 60 ML/MIN (60-); GLUCOSE 83 mg/dL (74-118); POTASSIUM 3.5 mmol/L (3.5-5.1); SODIUM 141 mmol/L (136-145)
--- NOTE | 2018-08-13 07:03 | NUR ---
REPORT GIVEN TO CAT ALANIS DAY SHIFT NURSE.
[2018-08-13] MEDS: SODIUM CHLORIDE 0.9% 1000ML 1,000 ML IV SCH ×3 (07:52→22:00)
--- NOTE | 2018-08-13 08:02 | NUR ---
PER DR CHRISTIE IT IS OK FOR PT TO TAKE MORNING PO MEDS WITH SIPS OF WATER
[2018-08-13] MEDS: LABETALOL HCL 100 MG TAB PO SCH (08:10)
[2018-08-13] MEDS: FAMOTIDINE 20 MG TAB PO SCH ×2 (08:10→17:43)
[2018-08-13] MEDS: NIFEDIPINE CR 30 MG TAB PO SCH (08:12)
[2018-08-13] MEDS: OXYBUTYNIN CHLORIDE 5 MG TAB PO SCH (08:13)
[2018-08-13] MEDS: ONDANSETRON HCL INJ 2MG/ML 2ML 2 MG/ML VIAL IV PRN ×2 (08:19→21:00)
[2018-08-13] MEDS: PANTOPRAZOLE 40 MG 10ML VIAL IV SCH ×2 (08:19→17:43)
[2018-08-13] MEDS: MORPHINE SULFATE INJ 4 MG/ML INJ 1ML IV PRN ×3 (08:19→21:09)
--- NOTE | 2018-08-13 09:28 | NUR ---
IM- Progress Note O/N; no events REVIEW OF SYSTEMS: Denies any dizziness, fever, chills, nausea vomiting, diarrhea, headache, back pain, leg pain, vision changes. PHYSICAL EXAMINATION VITAL SIGNS: Reviewed. GENERAL: A tired-appearing woman resting in bed. HEENT: Anicteric. CARDIOVASCULAR: Normal S1, S2. LUNGS: She has moderate breath sounds throughout. No wheezing. ABDOMEN: LAP site; tender abdomen; EXTREMITIES: No edema. SKIN: Dry. PSYCHIATRIC: Normal affect. NEUROLOGICAL: Alert and oriented x3. Moves all extremities. LABS: Reviewed. MEDICATIONS: Reviewed. ASSESSMENT: This is a 47-year-old woman. 1. Abdominal pain 2.Periumbilical hernia 3.Obesity 4.PreDM 5.Urinary incontinence 6.HTN 7.EMILIO PLAN 1. HIDA 2.hba1c/lipids 3.Restart home meds SCD/PEPCID dispo: f/u HIDA; possible surgical mgmt. 08/13 Hba1c 5.3, GNR UTI- start ceftriaxone. s/p hernia repair. pt able to ambulate to bathroom. Raj Pena MD, PhD.
[2018-08-13] MEDS: CEFTRIAXONE SOD 1 GM/NS 50 ML 50 ML IV SCH (09:59)
[2018-08-13] MEDS ORDERED: BACITRACIN 50,000 UNIT VIAL ONE (10:24)
[2018-08-13] MEDS ORDERED: BUPIVACAINE 0.5%/EPI 30 ML SDV INJ ONE (10:24)
--- NOTE | 2018-08-13 13:01 | NUR ---
RECEIVED REPORT FROM BE IN PACU AWAITING FOR PT TO ARRIVE TO FLOOR
--- NOTE | 2018-08-13 13:17 | Operative Report ---
DATE OF PROCEDURE: 08/13/2018 SURGEON: Brandt Mcgraw MD PREOPERATIVE DIAGNOSIS: Incarcerated incisional hernia. POSTOPERATIVE DIAGNOSIS: Incarcerated incisional hernia. OPERATIVE PROCEDURE: Repair of incarcerated incisional hernia. ANESTHESIA: General. DESCRIPTION OF PROCEDURE: The patient was brought to the OR and intubated. The abdomen was prepped and draped in a sterile fashion. A lower midline incision was reopened just around the umbilicus and below it, extending down to the underlying fascia. The hernia sac was dissected off the fascial edge. The patient had incarcerated loops of bowel inside the hernia sac, which were viable. After isolating the hernia sac and freeing it from the fascial edge, we were able to reduce it and the fascial preperitoneal space is clear for 2 to 3 cm. We then closed it in a transverse direction with interrupted 0-Prolene suture, taking wide bites from the fascial edges. After fascial repair, the subcutaneous tissues were approximated with 3-0 Vicryl and skin closed with subcuticular stitch. The patient was extubated and transferred to recovery room. ESTIMATED BLOOD LOSS: 5 mL. Brandt Mcgraw MD DNL/MODL /[id number]
[2018-08-13 13:20] VITALS: BP 160/100
[2018-08-13] MEDS ORDERED: LABETALOL HCL 5 MG/ML 20ML VIAL IV PRN (14:00)
[2018-08-13 14:14] VITALS: BP 160/100
--- NOTE | 2018-08-13 14:14 | NUR ---
PRN TRANDATE GIVEN FOR BP OF 158/83 HR OF 67 PER MD JOY ORDERS ORDERS TO CANCEL HIDA SCAN GIVEN
[2018-08-13 14:20] VITALS: BP 158/83
--- NOTE | 2018-08-13 16:12 | NUR ---
CASE MANAGEMENT INITIAL ASSESSMENT Closing Supervisor to bedside to discuss plan of care with patient/family. CM/SW role and care transitions discussed. Anticipated discharge plan discussed along with duration of care. CM/SW discussed patients right to make decisions in care. CM/SW work hours given. Patient lives: BOYFRIEND Admit/Transfer: ER Hospital/ER visits since last admit:0 POA/Emergency contact: JASON SHI, Current/Previous Home Health: NONE PCP/Follow-up Care: DR LAZARA JOY Current/Previous DME: NONE Medications (referring to index hospitalization or the first time you were in the hospital) a. Were changes made in your medications when you were in the hospital on [date of index hospitalization]? Yes No Not sure Explain: Note: If no or not sure, please skip to question d b. Did you understand the changes? Yes No Explain: c. Were you able to obtain your new medications right away? Yes No n/a SNF only Explain: d. Were you able to take your medications like the doctor wanted you to? Yes No Explain: e. Did the hospital give you an accurate, easy to understand list of medications when you left? Yes No n/a SNF only Explain: Scale of 1-10 how comfortable does patient feel with disease management in outpatient settin Other Services: NONE Employment Status: WORKS [employer] Areas of Concerns: NONE Referral Needs: NONE Education Needs: F/U WITH SURGEON THADDEUS/KAMERON given and signed (if applicable): N/A Goal for discharge:HOME WITH BOYFRIEND CM/SW left business card at the bedside with contact information. Name and number was also written on the patients whiteboard. Patient verbalized understanding of discussion. CM will follow-up with ongoing discharge and transition of care needs.
[2018-08-13 16:31] VITALS: BP 171/96
[2018-08-13] MEDS ORDERED: NEOSTIGMINE 5 MG/5ML SYR ONE (17:28)
[2018-08-13] MEDS ORDERED: ACETAMINOPHEN 1000 MG/100 ML IV ONE (17:28)
[2018-08-13] MEDS ORDERED: LABETALOL HCL 5 MG/ML 20ML VIAL ONE (17:28)
[2018-08-13] MEDS ORDERED: ONDANSETRON HCL INJ 2MG/ML 2ML 2 MG/ML VIAL ONE (17:28)
[2018-08-13] MEDS ORDERED: PROPOFOL IV EMULSION 10 MG/ML 20 ML VIAL ONE (17:28)
[2018-08-13] MEDS ORDERED: SEVOFLURANE INHAL SOLN 250 ML PEN BTL ONE (17:28)
[2018-08-13] MEDS ORDERED: SUCCINYLCHOLINE 200 MG/10 ML SYR ONE (17:28)
[2018-08-13] MEDS ORDERED: GLYCOPYRROLATE INJ 1MG/ 5 ML SYR ONE (17:28)
[2018-08-13] MEDS ORDERED: ROCURONIUM BROMIDE 10 MG/ML 5ML VIAL ONE (17:28)
[2018-08-13] MEDS ORDERED: CEFAZOLIN SOD 1 GM VIAL ONE (17:28)
[2018-08-13] MEDS ORDERED: DEXAMETHASONE SOD PHOS INJ 4 MG/ML VIAL ONE (17:28)
[2018-08-13] MEDS ORDERED: LIDOCAINE HCL 2% LOCAL INJ 5 ML SDV VIAL INJ ONE (17:28)
[2018-08-13 19:00] VITALS: BP 171/96
[2018-08-13] MEDS ORDERED: FENTANYL CITRATE/PF 100MCG/2 ML INJ ONE (19:13)
[2018-08-13] MEDS ORDERED: MIDAZOLAM HCL 2 MG/2 ML VIAL ONE (19:13)
[2018-08-13 20:04] VITALS: BP 153/87
[2018-08-14] VITALS (9 sets, daily range): BP systolic 119–161; BP diastolic 70–96
[2018-08-14] MEDS: SODIUM CHLORIDE 0.9% 1000ML 1,000 ML IV SCH ×3 (06:00→22:00)
[2018-08-14] MEDS: MORPHINE SULFATE INJ 4 MG/ML INJ 1ML IV PRN (07:03)
[2018-08-14] MEDS: ONDANSETRON HCL INJ 2MG/ML 2ML 2 MG/ML VIAL IV PRN ×2 (07:03→14:50)
--- NOTE | 2018-08-14 07:04 | NUR ---
Discharge summary; ASSESSMENT: This is a 47-year-old woman. 1. Abdominal pain 2.Periumbilical hernia 3.Obesity 4.PreDM 5.Urinary incontinence 6.HTN 7.EMILIO PLAN 1. HIDA 2.hba1c/lipids 3.Restart home meds SCD/PEPCID dispo: f/u HIDA; possible surgical mgmt. 08/13 Hba1c 5.3, GNR UTI- start ceftriaxone. s/p hernia repair. pt able to ambulate to bathroom. 08/14 E.coli UTI sen to ceftriaxone; d/c home on keflex and pain meds. check labs first. d/c home f/u pcp 1 week and as directed stable d/c>35mins. Raj Pena MD, PhD.
[2018-08-14] MEDS ORDERED: SENNA LAX8.6 MG PO (07:07)
[2018-08-14] MEDS ORDERED: KEFLEX500 MG PO (07:07)
[2018-08-14] MEDS ORDERED: ZOFRAN4 MG PO (07:07)
[2018-08-14] MEDS ORDERED: NIFEDIPINE ER30 M1 PO (07:07)
[2018-08-14] MEDS ORDERED: PANTOPRAZOLE SO40 MG PO (07:07)
[2018-08-14] MEDS ORDERED: TYLENOL WITH C1 EACH PO (07:10)
[2018-08-14] MEDS ORDERED: COLACE100 MG PO (07:11)
[2018-08-14 07:38] LABS: BASOPHILS % 0.3 % (0.0-1.0); EOSINOPHILS % 0.1 % (0.0-6.0); HEMATOCRIT 38.7 % (34.2-44.1); HEMOGLOBIN 12.2 g/dL (12.0-16.0); LYMPHOCYTES # (AUTO) 1.7 (1.0-3.2); LYMPHOCYTES % 15.7 % (18.0-39.1); MEAN CORPUSCULAR HEMOGLOBIN 26.6 pg (28-32); MEAN CORPUSCULAR HGB CONC 31.5 g/dL (31-35); MEAN CORPUSCULAR VOLUME 84.3 fL (81-99); MONOCYTES # (AUTO) 1.2 (0.2-0.8); MONOCYTES % 11.1 % (4.4-11.3); NEUTROPHILS # (AUTO) 7.8 (2.1-6.9); NEUTROPHILS % 72.4 % (38.7-80.0); PLATELET COUNT 292 x10e3/uL (140-360); RED BLOOD COUNT 4.59 x10e6/uL (3.6-5.1); RED CELL DISTRIBUTION WIDTH 13.6 % (11.7-14.4)
[2018-08-14 07:55] LABS: ANION GAP 9.4 mmol/L (8-16); BLOOD UREA NITROGEN 10 mg/dL (7-26); BUN/CREATININE RATIO 13 (6-25); CALCIUM 8.9 mg/dL (8.4-10.2); CARBON DIOXIDE 25 mmol/L (22-29); CHLORIDE 104 mmol/L (98-107); CREATININE, SERUM 0.76 mg/dL (0.57-1.11); EST GLOMERULAR FILTRATION RATE > 60 ML/MIN (60-); GLUCOSE 97 mg/dL (74-118); MAGNESIUM 2.3 MG/DL (1.3-2.1); POTASSIUM 3.4 mmol/L (3.5-5.1); SODIUM 135 mmol/L (136-145)
[2018-08-14] MEDS: LABETALOL HCL 100 MG TAB PO SCH (08:15)
[2018-08-14] MEDS: CEFTRIAXONE SOD 1 GM/NS 50 ML 50 ML IV SCH (08:15)
[2018-08-14] MEDS: OXYBUTYNIN CHLORIDE 5 MG TAB PO SCH (08:15)
[2018-08-14] MEDS: PANTOPRAZOLE 40 MG 10ML VIAL IV SCH ×2 (08:15→16:57)
[2018-08-14] MEDS: NIFEDIPINE CR 30 MG TAB PO SCH (08:31)
--- NOTE | 2018-08-14 08:33 | NUR ---
MD BENITA BURKETT WHO STATES PT IS REQUESTING EGD DUE TO ABD PAIN UNRELIEVED BY SX. MD ASKED TO SPEAK TO MD CORRALES FOR ORDERS ON [facility] INPATIENT SPOKE WITH MD CORRALES WHO HAS AGREED FOR EDG THIS AFTERNOON IF MELODY IS OK WITH PROCEDURE BEING DONE MD OLIVER HAS SAID OK . PT HAS SIGNED CONSENT FOR EDG FOR LATER THIS AFTERNOON PT HAS NOT HAD ANYTHING TO EAT SINCE LAST NIGHT.
--- NOTE | 2018-08-14 13:05 | NUR ---
Patient went to OR at this time.
--- NOTE | 2018-08-14 13:13 | NUR ---
PT OFF UNIT FOR ENDOSCOPY AT THIS TIME
--- NOTE | 2018-08-14 14:00 | NUR ---
RECEIVED REPORT FROM JORGE L IN PACU . EGD COMPLETE NO SIGNIFINCANT FINDINGS NOTED UPON PROCEDURE (MILD ESOPHAGITIS, HIATAL HERNIA ,AND GASTRITIS NOTED), AWAITING FOR PT TO ARRIVE TO FLOOR
--- NOTE | 2018-08-14 14:22 | NUR ---
PT BACK FROM ENDOSCOPY. [id number]. PT IS IN NO S.S OF DISTRESS. CONNECTED FLUIDS WITN NS TO THE LEFT AC . WILL GIVE PT SOMETHING TO EAT AT THIS TIME. INSTRUCTED TO CALL FOR ASSISTANCE IF NEEDED
--- NOTE | 2018-08-14 14:43 | Operative Report ---
DATE OF PROCEDURE: 08/14/2018 SURGEON: Pan Damian MD PROCEDURE: Esophagogastroduodenoscopy with biopsies. INDICATIONS FOR EGD: Upper abdominal pain, nausea. MEDICATIONS: The patient was done under MAC, please see anesthesiologist's note. PROCEDURE IN DETAIL: With the patient in left lateral decubitus position, flexible fiberoptic Olympus gastroscope was introduced into the esophagus under direct visualization without any difficulty. There were some patchy erythema noted in distal esophagus. A minute tongue of velvety red mucosa was noted to extend proximally from the GE junction that was biopsied to rule out Bernard. The scope was then advanced with ease into her stomach traversing a small sliding hiatal hernia. Mucosa overlying the antrum and the body revealed some patchy erythema and moderate edema and biopsies were obtained and sent to stain for H pylori. A large gastric rugal fold was noted in the body of the stomach and that was biopsied. The pylorus was of normal contour and shape, it was intubated with ease and the scope was advanced all the way to the second portion of the duodenum. The scope was then withdrawn slowly. Mucosa overlying the proximal second portion and the duodenal bulb appeared to be within normal limits. The scope was then withdrawn back into the stomach and retroflexed and mucosa overlying the fundus and cardia appeared to be within normal limits. The scope was then straightened out, it was subsequently withdrawn. The patient tolerated the procedure well. IMPRESSION: 1. Distal esophagitis, mild. 2. Rule out Bernard esophagus. 3. Small sliding hiatal hernia. 4. Gastritis, biopsied. Biopsies sent to stain for Helicobacter pylori. 5. Prominent gastric fold, body, biopsied. PLAN: Follow up histology. Initiate Protonix 40 mg one p.o. q.a.m. a.c. Pan Damian MD [facility] [place]/MODL /[id number] cc: MD Brandt Barnes MD
[2018-08-14] MEDS ORDERED: PROPOFOL IV EMULSION 10 MG/ML 50 ML VIAL ONE (18:58)
[2018-08-14] MEDS ORDERED: MIDAZOLAM HCL 2 MG/2 ML VIAL ONE (19:12)
--- NOTE | 2018-08-14 22:40 | NUR ---
DR. James CORRALES NOTIFIED THAT PATIENT HAD NO BOWEL MOVEMENT SINCE MONDAY ON THE DAY OF ADMISSION. NEW ORDERS RECEIVED.
[2018-08-14] MEDS ORDERED: MAGNESIUM HYDROXIDE 30 ML UDC PO ONE (22:45)
[2018-08-15] VITALS: BP 138/84
[2018-08-15 04:00] VITALS: BP 131/78
--- NOTE | 2018-08-15 05:56 | NUR ---
TEMP RECHECKED 98.8 F.
[2018-08-15] MEDS: ONDANSETRON HCL INJ 2MG/ML 2ML 2 MG/ML VIAL IV PRN (06:06)
--- NOTE | 2018-08-15 07:28 | NUR ---
PAGED DR. James CORRALES AT THIS TIME FOR DISCHARGE CLEARANCE PER DR. JOY REQUEST. AWAITING CALL BACK.
--- NOTE | 2018-08-15 07:42 | NUR ---
PER DR. James CORRALES PT OK TO D/C FROM GI STANDPOINT PT NEEDS TO FOLLOW UP IN [address] OJY NOTIFIED.
[2018-08-15 08:13] LABS: ANION GAP 10.4 mmol/L (8-16); BLOOD UREA NITROGEN 7 mg/dL (7-26); BUN/CREATININE RATIO 9 (6-25); CALCIUM 8.2 mg/dL (8.4-10.2); CARBON DIOXIDE 27 mmol/L (22-29); CHLORIDE 106 mmol/L (98-107); CREATININE, SERUM 0.76 mg/dL (0.57-1.11); EST GLOMERULAR FILTRATION RATE > 60 ML/MIN (60-); GLUCOSE 103 mg/dL (74-118); POTASSIUM 3.4 mmol/L (3.5-5.1); SODIUM 140 mmol/L (136-145)
[2018-08-15 08:30] VITALS: BP 130/78
[2018-08-15] MEDS ORDERED: MAGNESIUM HYDROXIDE 30 ML UDC PO PRN (09:00)
[2018-08-15] MEDS: PANTOPRAZOLE 40 MG 10ML VIAL IV SCH (09:52)
[2018-08-15] MEDS: OXYBUTYNIN CHLORIDE 5 MG TAB PO SCH (09:52)
[2018-08-15] MEDS: LABETALOL HCL 100 MG TAB PO SCH (09:52)
[2018-08-15] MEDS: CEFTRIAXONE SOD 1 GM/NS 50 ML 50 ML IV SCH (09:52)
[2018-08-15 13:35] VITALS: BP 135/82
== END 2018-08-15 15:11 | disposition home or self-care (01) | DRG 354 ==
LOC: ER 09:02 → ERHOLD 12:54 → MED/SURG 08-13 13:15
PROVIDERS: ADMIT Internal Medicine; ATTEND Internal Medicine
PROC: 0DB38ZX Excision of Lower Esophagus, Via Natural or Artificial Opening Endoscopic, Diagnostic (ICD-10-PCS; 2018-08-13)
PROC: 0DB78ZX Excision of Stomach, Pylorus, Via Natural or Artificial Opening Endoscopic, Diagnostic (ICD-10-PCS; 2018-08-13)
PROC: 0DB68ZX Excision of Stomach, Via Natural or Artificial Opening Endoscopic, Diagnostic (ICD-10-PCS; 2018-08-13)
PROC: 0WQF0ZZ Repair Abdominal Wall, Open Approach (ICD-10-PCS; principal; 2018-08-13 08:00)
DX: K43.0 Incisional hernia with obstruction, without gangrene (principal); Z68.42 Body mass index [BMI] 45.0-49.9, adult; K20.9 Esophagitis, unspecified; K29.70 Gastritis, unspecified, without bleeding; K44.9 Diaphragmatic hernia without obstruction or gangrene; I10 Essential (primary) hypertension; F41.1 Generalized anxiety disorder; E66.9 Obesity, unspecified; R73.03 Prediabetes; R32 Unspecified urinary incontinence
CPT/HCPCS: 36415; 43239; 71045; 74177; 80048; 80053; 80061; 81001; 82150; 82550; 82553; 83036; 83690; 83735; 84443; 84484; 85025; 85610; 85730; 87086; 87186; 88305; 88312; 93005; 96361; 99284; J0690; J0696; J1100; J1885; J2001; J2250; J2270; J2405; J7030; Q9967

== ENCOUNTER 2020-09-23 08:24 | Observation (INO) | payer BC ==
[~2020-09-23] VITALS: Ht 152.4 cm; Wt 90.7 kg
[~2020-09-23 08:24] MED LIST changes: +COLACE100 MG PO; +KEFLEX500 MG PO; +NIFEDIPINE ER30 M1 PO; +PANTOPRAZOLE SO40 MG PO; +SENNA LAX8.6 MG PO; +TYLENOL WITH C1 EACH PO; +ZOFRAN4 MG PO
[2020-09-23] MEDS ORDERED: ONDANSETRON HCL INJ 2MG/ML 2ML 2 MG/ML VIAL IV ONE (08:43)
[2020-09-23 09:03] LABS: BASOPHILS # (AUTO) 0.1 (0.0-0.1); BASOPHILS % 1.3 % (0.0-1.0); EOSINOPHILS # (AUTO) 0.1 (0.0-0.4); EOSINOPHILS % 1.3 % (0.0-6.0); HEMATOCRIT 39.5 % (34.2-44.1); HEMOGLOBIN 12.4 g/dL (12.0-16.0); LYMPHOCYTES % 43.3 % (18.0-39.1); MEAN CORPUSCULAR HEMOGLOBIN 27.3 pg (28-32); MEAN CORPUSCULAR HGB CONC 31.4 g/dL (31-35); MONOCYTES # (AUTO) 0.5 (0.2-0.8); MONOCYTES % 9.8 % (4.4-11.3); NEUTROPHILS # (AUTO) 2.1 (2.1-6.9); NEUTROPHILS % 44.1 % (38.7-80.0); PLATELET COUNT 293 x10e3/uL (140-360); RED BLOOD COUNT 4.54 x10e6/uL (3.6-5.1); RED CELL DISTRIBUTION WIDTH 14.1 % (11.7-14.4)
[2020-09-23 09:12] LABS: CLARITY,URINE CLEAR (CLEAR); COLOR,URINE YELLOW (YELLOW); KETONES,URINE NEGATIVE (NEGATIVE); LEUKOCYTE ESTERASE ,URINE NEGATIVE (NEGATIVE); NITRITE,URINE NEGATIVE (NEGATIVE); PROTEIN,URINE DIPSTICK TRACE (NEGATIVE)
[2020-09-23 09:13] LABS: URINE UROBILINOGEN 1 mg/dL (0.2 - 1)
[2020-09-23 09:16] LABS: AMORPHOUS SEDIMENT,URINE MANY (FEW); BACTERIA,URINE MANY /HPF; EPITHELIAL CELLS,URINE FEW /LPF
[2020-09-23 09:22] LABS: ALANINE AMINOTRANSFERASE 22 IU/L (0-55); ALBUMIN 3.7 g/dL (3.5-5.0); ALKALINE PHOSPHATASE 80 IU/L (40-150); ANION GAP 11.6 mmol/L (8-16); BLOOD UREA NITROGEN 12 mg/dL (7-26); BUN/CREATININE RATIO 13 (6-25); CALCIUM 9.6 mg/dL (8.4-10.2); CARBON DIOXIDE 26 mmol/L (22-29); CHLORIDE 110 mmol/L (98-107); CREATININE, SERUM 0.93 mg/dL (0.57-1.11); EST GLOMERULAR FILTRATION RATE > 60 ML/MIN (60-); GLUCOSE 97 mg/dL (74-118); POTASSIUM 3.6 mmol/L (3.5-5.1); SODIUM 144 mmol/L (136-145)
[2020-09-23] MEDS: DONNATAL/LIDOCAINE/MAALOX 30 ML SUSP PO SCH ×3 (09:31→21:59)
[2020-09-23] MEDS ORDERED: BELLADONNA ALK/PHENOBARBITAL 5 ML UDC ONE (09:34)
[2020-09-23] MEDS ORDERED: MAGNESIUM/ALUMINUM/SIMETHICONE 30 ML UDC ONE (09:34)
[2020-09-23] MEDS ORDERED: LIDOCAINE VISC 2% SOLN 15 ML UDC ONE (09:34)
[2020-09-23 10:01] LABS: EOSINOPHILS % (MANUAL) 1 % (0-7); LYMPHOCYTES % (MANUAL) 24 % (19-48); MONOCYTES % (MANUAL) 8 % (3.4-9.0); NEUTROPHILS % (MANUAL) 57 % (40-74)
[2020-09-23 10:02] LABS: PLATELET ESTIMATE ADEQUATE; PLATELET MORPHOLOGY COMMENT NORMAL
[2020-09-23] MEDS ORDERED: MORPHINE SULFATE INJ 2 MG/ML SYR IV PRN (11:00)
[2020-09-23] MEDS ORDERED: ONDANSETRON HCL INJ 2MG/ML 2ML 2 MG/ML VIAL IV PRN (11:00)
[2020-09-23] MEDS ORDERED: MORPHINE SULFATE INJ 4 MG/ML INJ 1ML IV PRN (11:15)
[2020-09-23] MEDS: SODIUM CHLORIDE 0.9% 1000ML 1,000 ML IV SCH ×2 (11:21→15:25)
[2020-09-23] MEDS ORDERED: VALSARTAN160 MG PO (11:24)
[2020-09-23] MEDS ORDERED: TOPIRAMATE100 MG PO (11:24)
[2020-09-23] MEDS ORDERED: CARTIA XT180 MG PO (11:24)
[2020-09-23] MEDS ORDERED: B COMPLEX1 EACH PO (11:24)
[2020-09-23] MEDS ORDERED: PROBIOTIC & AC1 EACH PO (11:25)
[2020-09-23] MEDS ORDERED: OMEPRAZOLE40 MG PO (11:26)
[2020-09-23 13:47] VITALS: BP 140/94
[2020-09-23 13:49] VITALS: BP 140/94
[2020-09-23 15:55] VITALS: BP 131/88
[2020-09-23 21:22] VITALS: BP 128/94
[2020-09-23 22:17] VITALS: BP 128/94
[2020-09-24] VITALS (10 sets, daily range): BP systolic 107–141; BP diastolic 89–100
[2020-09-24] MEDS ORDERED: BISACODYL 5 MG TAB EC PO ONE ×2 (01:00→01:30)
[2020-09-24] MEDS: PANTOPRAZOLE 40 MG 10ML VIAL IV SCH ×3 (01:42→21:07)
[2020-09-24 06:14] LABS: BASOPHILS # (AUTO) 0.1 (0.0-0.1); BASOPHILS % 0.9 % (0.0-1.0); EOSINOPHILS # (AUTO) 0.1 (0.0-0.4); EOSINOPHILS % 1.4 % (0.0-6.0); HEMOGLOBIN 11.7 g/dL (12.0-16.0); LYMPHOCYTES # (AUTO) 2.3 (1.0-3.2); LYMPHOCYTES % 41.9 % (18.0-39.1); MEAN CORPUSCULAR HGB CONC 30.8 g/dL (31-35); MEAN CORPUSCULAR VOLUME 87.6 fL (81-99); MONOCYTES # (AUTO) 0.7 (0.2-0.8); MONOCYTES % 11.8 % (4.4-11.3); NEUTROPHILS # (AUTO) 2.4 (2.1-6.9); NEUTROPHILS % 43.8 % (38.7-80.0); PLATELET COUNT 285 x10e3/uL (140-360); RED BLOOD COUNT 4.34 x10e6/uL (3.6-5.1); RED CELL DISTRIBUTION WIDTH 14.1 % (11.7-14.4)
[2020-09-24] MEDS: POLYETHYLENE GLYCOL 3350 17 GM PACK PO SCH ×4 (06:14→19:26)
[2020-09-24] MEDS: SODIUM CHLORIDE 0.9% 1000ML 1,000 ML IV SCH ×3 (06:14→18:40)
[2020-09-24 06:31] LABS: ANION GAP 11.5 mmol/L (8-16); BLOOD UREA NITROGEN 9 mg/dL (7-26); BUN/CREATININE RATIO 12 (6-25); CARBON DIOXIDE 22 mmol/L (22-29); CHLORIDE 112 mmol/L (98-107); CREATININE, SERUM 0.78 mg/dL (0.57-1.11); EST GLOMERULAR FILTRATION RATE > 60 ML/MIN (60-); GLUCOSE 78 mg/dL (74-118); POTASSIUM 3.5 mmol/L (3.5-5.1); SODIUM 142 mmol/L (136-145)
[2020-09-24] MEDS: TOPIRAMATE 100 MG TAB PO SCH (08:35)
[2020-09-24] MEDS: DOCUSATE SODIUM 100 MG CAP PO SCH ×2 (08:35→17:00)
[2020-09-24] MEDS: LABETALOL HCL 100 MG TAB PO SCH (08:35)
[2020-09-24] MEDS: PROMETHAZINE 12.5MG/ NACL 0.9% 12.5 MG/50 ML BAG IV PRN ×2 (08:35→21:17)
[2020-09-24] MEDS: SENNOSIDES 8.6 MG TAB PO SCH (08:35)
[2020-09-24] MEDS: DONNATAL/LIDOCAINE/MAALOX 30 ML SUSP PO SCH ×3 (08:35→18:09)
[2020-09-24] MEDS: VALSARTAN 160 MG TAB PO SCH (08:35)
[2020-09-25] VITALS: BP 108/79
[2020-09-25] MEDS ORDERED: PANTOPRAZOLE 40 MG 10ML VIAL IV STA (00:07)
[2020-09-25] MEDS ORDERED: PANTOPRAZOL 40MG/SOD CHL 0.9% 250 ML IV SCH (00:15)
[2020-09-25] MEDS: SODIUM CHLORIDE 0.9% 1000ML 1,000 ML IV SCH (01:00)
[2020-09-25] MEDS: PANTOPRAZOLE INJ 40 MG in SODIUM CHLORIDE 0.9% 50ML 50 ML IV SCH ×2 (01:30→05:51)
[2020-09-25 04:00] VITALS: BP_SYST 108; BP_SYST 118; BP_DIAS 79; BP_DIAS 98
[2020-09-25] MEDS: POLYETHYLENE GLYCOL 3350 17 GM PACK PO SCH (04:46)
[2020-09-25] MEDS ORDERED: SENOKOT8.6 MG PO (06:00)
[2020-09-25] MEDS ORDERED: MIRALAX17 GM PO (06:00)
[2020-09-25] MEDS ORDERED: COLACE100 MG PO (06:00)
[2020-09-25] MEDS ORDERED: KEFLEX125 MG/5 M PO (06:03)
[2020-09-25] MEDS ORDERED: PANTOPRAZOLE SO40 MG PO (06:03)
[2020-09-25 08:12] VITALS: BP 111/82
[2020-09-25] MEDS: DOCUSATE SODIUM 100 MG CAP PO SCH (08:25)
[2020-09-25] MEDS: VALSARTAN 160 MG TAB PO SCH (08:25)
[2020-09-25] MEDS: LABETALOL HCL 100 MG TAB PO SCH (08:26)
[2020-09-25] MEDS: SENNOSIDES 8.6 MG TAB PO SCH (08:26)
[2020-09-25] MEDS: DONNATAL/LIDOCAINE/MAALOX 30 ML SUSP PO SCH (08:26)
[2020-09-25] MEDS: TOPIRAMATE 100 MG TAB PO SCH (08:26)
[2020-09-25 08:27] VITALS: BP 111/82
[2020-09-25] MEDS ORDERED: LINACLOTIDE 145 MCG CAPSULE PO SCH (09:00)
[2020-09-29 05:12] LABS: ENDOMYSIAL ANTIBODIES, IGA Negative (Negative)
== END 2020-09-25 12:26 | disposition home or self-care (01) ==
LOC: ER 08:43 → ERHOLD 10:58 → MED/SURG3 12:51
PROVIDERS: ADMIT Internal Medicine; ATTEND Internal Medicine
DX: K29.70 Gastritis, unspecified, without bleeding (principal); I10 Essential (primary) hypertension; K21.9 Gastro-esophageal reflux disease without esophagitis; K59.09 Other constipation; N39.0 Urinary tract infection, site not specified; E66.9 Obesity, unspecified; Z68.39 Body mass index [BMI] 39.0-39.9, adult; Z20.822 Contact with and (suspected) exposure to COVID-19
CPT/HCPCS: 36415 ×2; 76705; 78227; 80048; 80053; 81001; 82784; 83516; 83690; 84443; 84484; 85025 ×2; 86256; 87086; 93005; 99284; A9537; C9113 ×2; G0378 ×3; J2270; J2405 ×2; J2550; J7030 ×3; U0002